=== PATIENT | male | born 1980 | race Asian ===

== ENCOUNTER 2018-12-20 22:42 | Emergency (ER) | payer BC ==
[~2018-12-20] VITALS: Ht 177.8 cm; Wt 83.9 kg
[2018-12-20 22:47] VITALS: BP 132/82; Ht 177.8 cm; Wt 83.9 kg
== END 2018-12-21 02:10 | disposition home or self-care (01) ==
LOC: ED 22:42
DX: M20.021 Boutonniere deformity of right finger(s) (principal)